=== PATIENT | male | born 1965 | race Hispanic/Latino ===

== ENCOUNTER 2025-02-09 07:56 | Emergency (ER) | payer SELFPAY ==
[~2025-02-09] VITALS: Ht 177.8 cm; Wt 90.7 kg
--- NOTE | 2025-02-09 08:13 | EKG ---
[facility] Test Date: 2025-02-09 Test Time: 07:51:47 Pat Name: PARTHA PÉREZ Department: ED Room: Gender: Stone [employer] R[employer]: [id number] : 1965 Requested By: PRIETO MCINTYRE Order Number: [id number] Reading MD: Natalee Kearns Measurements Intervals Mentcle Rate: 92 P: 23 NV: 164 QRS: -9 QRSD: 120 T: 9 QT: 396 QTc: 489 Interpretive Statements Normal sinus rhythm Nonspecific intraventricular conduction delay Nonspecific T wave abnormality No previous ECG available for comparison Electronically Signed On 02-09-2025 15:06:48 CDT by Natalee Kearns Please click the below link to view image of tracing.
[2025-02-09 08:20] LABS: BASOPHILS # (AUTO) 0.05 K/uL (0.00-0.20); BASOPHILS % (AUTO) 0.3 % (0.0-5.0); EOSINOPHILS # (AUTO) 0.28 K/uL (0.00-0.70); EOSINOPHILS % (AUTO) 1.9 % (0.0-8.0); HEMATOCRIT 41.5 % (42-54); IMMATURE GRANULOCYTE ABSOLUTE 0.05 K/uL (0-1); LYMPHOCYTES # (AUTO) 2.4 K/uL (1.0-4.8); LYMPHOCYTES % (AUTO) 16.3 % (21.0-51.0); MEAN CORPUSCULAR HEMOGLOBIN 29.4 pg (27.0-33.0); MEAN CORPUSCULAR HGB CONC 34.9 g/dL (32.0-36.0); MONOCYTES # (AUTO) 0.7 K/uL (0.1-1.0); NEUTROPHILS # (AUTO) 11.1 K/uL (1.8-7.7); NEUTROPHILS % (AUTO) 76.2 % (40.0-77.0); PLATELET COUNT (AUTO) 333 K/uL (130-400); RED BLOOD CELL COUNT(AUTO) 4.94 MIL/uL (4.50-6.20); RED CELL DISTRIBUTION WIDTH 13.3 % (11.0-15.5); WHITE BLOOD COUNT (AUTO) 14.5 K/uL (4.8-10.8)
[2025-02-09 08:34] LABS: CREATININE 0.9 mg/dL (0.5-1.3); POTASSIUM 4.4 mmol/L (3.5-5.1)
[2025-02-09 08:52] LABS: B-TYPE NATRIURETIC PEPTIDE 9 pg/mL (0-100)
--- NOTE | 2025-02-09 09:59 | HMCIMG ---
CHEST 1VW HISTORY: Chest pain COMPARISON: None FINDINGS: A frontal projection of the chest was obtained. Mild bilateral pulmonary infiltrates are seen may be related to mild pulmonary vascular congestion with possible superimposed pneumonitis. The heart is borderline enlarged. Degenerative changes are seen. Aortic calcifications are seen. IMPRESSION: 1. Bilateral pulmonary infiltrates are seen suggestive of pulmonary vascular congestion with possible superimposed pneumonitis.
[2025-02-09] MEDS ORDERED: NIFE-39 PO (10:11)
--- NOTE | 2025-02-09 10:12 | ERN ---
General Chief Complaint: Chest Pain Stated Complaint: CHEST PAIN Time Seen by MD: 08:03 History of Present Illness Initial Comments 59-year-old male presents for chest pain. Patient was very recently released from incarceration. He was walking from the bus and he felt chest pain. Center of the chest chest pain that has brief. He felt very anxious at the time. No dyspnea. He called EMS and was found to have stable vital signs that are normal EKG. On arrival here he reports that his symptoms have improved. He reports t hat he thinks he is likely suffering from anxiety/panic attack, but he wants to make sure that his heart is okay. It does have a significant history of anxiety and high blood pressure. Allergies: Coded Allergies: No Known Drug Allergies (Unverified Allergy, Unknown, 02/09/25) Past Medical History Past Medical History: Anxiety, Depression, High Cholesterol Past Surgical History: None ROS Dictation CONSTITUTIONAL: No chills, no fever, no weakness, no diaphoresis, no malaise. HEAD/FACE: No signs of trauma. EENT: No eye pain, no blurred vision, no tearing, no double vision, no ear pain, no ear discharge, no nose pain, no nasal congestion, no throat pain, no throat swelling, no mouth pain. RESPIRATORY: No cough, no orthopnea, no SOB, no stridor, no wheezing. CARDIOVASCULAR: Chest pain GASTROINTESTINAL/ABDOMINAL: No abdominal pain, no constipation, no diarrhea, no nausea, no vomiting. GENITOURINARY: No abnormal discharge, no dysuria, no frequent urination, no hematuria. No complaints of pain in the genitals. MUSCULOSKELETAL: No back pain, no gout, no joint pain, no joint swelling, no muscle pain, no muscle stiffness, no neck pain. INTEGUMENTARY: No change in color, no change in hair/nails, no dryness, no lesion, no lumps, no rash. NEUROLOGICAL/PSYCH: Anxiety HEMATOLOGIC/LYMPHATIC: Not anemic, no history of blood clots, no apparent bleeding, no bruising, glands not swollen. All Systems Negative, Except as Noted. Physical Exam Physical Exam Dictation VITAL SIGNS: Reviewed. GENERAL APPEARANCE: Alert, oriented x3, no acute distress, nontoxic HEAD AND FACE: Non-traumatic. EYES: PERRL, pink conjunctivas, eyelid no trauma, anterior chamber clear. EARS: Pinnas intact and no signs of trauma or erythema. Ear canals clear and no discharge. TMs no erythema. NOSE: No discharge, no bleeding. OROPHARYNX: Mouth normal, teeth no caries, tongue pink. Pharynx clear, no erythema. Tonsils no exudates, no abscesses noted. Mucous membrane moist. NECK: Supple, non-tender, no thyromegaly, no masses, no JVD, no bruits. BREAST: Deferred. CHEST: No tenderness, no crepitus, no paradoxical movement, no retractions. LUNGS: Clear, well-ventilated, symmetric, no rales, no wheezing, no rhonchi, no stridor, good breath sounds bilaterally. HEART: Regular rate, regular rhythm, no murmur, no gallops. VASCULAR: No peripheral edema. ABDOMEN: Soft, positive bowel sounds, nondistended, no guarding, nontender, no rebound, no masses no hepatomegaly, no splenomegaly, no Gonsalves's sign, no hernias. RECTAL: Deferred. GENITAL: Deferred. NEUROLOGICAL: Normal speech, gross motor function intact, gross sensory function intact. MUSCULOSKELETAL: Neck nontender, full range of motion, back nontender, full range of motion. EXTREMITIES: Nontender, full range of motion. SKIN: Color pink, dry, no turgor, no rash, no lacerations, no abrasions, no contusions. LYMPHATICS: Deferred. Results Laboratory and Microbiology Lab and Micro Result Laboratory Tests Test 02/09/25 08:06 02/09/25 09:23 White Blood Count 14.5 K/uL (4.8-10.8) H Red Blood Count 4.94 MIL/uL (4.50-6.20) Hemoglobin 14.5 g/dL (14.0-18.0) Hematocrit 41.5 % (42-54) L Mean Corpuscular Volume 84.0 fL (79-99) Mean Corpuscular Hemoglobin 29.4 pg (27.0-33.0) Mean Corpuscular Hemoglobin Concent 34.9 g/dL (32.0-36.0) Red Cell Distribution Width 13.3 % (11.0-15.5) Platelet Count 333 K/uL (130-400) Mean Platelet Volume 10.3 fL (7.5-10.5) Immature Granulocyte % (Auto) 0.3 % (0-1) Neutrophils (%) (Auto) 76.2 % (40.0-77.0) Lymphocytes (%) (Auto) 16.3 % (21.0-51.0) L Monocytes (%) (Auto) 5.0 % (3.0-13.0) Eosinophils (%) (Auto) 1.9 % (0.0-8.0) Basophils (%) (Auto) 0.3 % (0.0-5.0) Neutrophils # (Auto) 11.1 K/uL (1.8-7.7) H Lymphocytes # (Auto) 2.4 K/uL (1.0-4.8) Monocytes # (Auto) 0.7 K/uL (0.1-1.0) Eosinophils # (Auto) 0.28 K/uL (0.00-0.70) Basophils # (Auto) 0.05 K/uL (0.00-0.20) Absolute Immature Granulocyte (auto 0.05 K/uL (0-1) Nucleated Red Blood Cells 0.0 % (0.0-0.19) Sodium Level 138 mmol/L (136-145) Potassium Level 4.4 mmol/L (3.5-5.1) Chloride Level 103 mmol/L (101-111) Carbon Dioxide Level 26 mmol/L (21-32) Blood Urea Nitrogen 24 mg/dL (7-18) H Creatinine 0.9 mg/dL (0.5-1.3) Glomerular Filtration Rate Calc 99 mL/min (>90) Random Glucose 205 mg/dL (70-105) H Total Calcium 9.3 mg/dL (8.5-10.1) Troponin I High Sensitivity 10 ng/L (4-75) 11 ng/L (4-75) B-Type Natriuretic Peptide 9 pg/mL (0-100) MDM CC: Chest pain Historian: Patient Comorbidities: Hypertension, anxiety Limitations by social determinants of health: Patient just released from incarceration. He does have insurance but does not have a primary provider. I did factor this into my decision making. I gave him a prolonged prescription for his hypertension medication based on this. Differential diagnosis: ACS versus anxiety reaction Vital signs are stable, remained stable in the ER EKG shows a sinus rhythm rate of 92 with a normal axis good R-wave progression. LVH criteria. No STEMI. Independently interpreted by me. Labs show leukocytosis 14.5 K no shift or bands. No anemia. Chemistry shows s table electrolytes elevated BUN to creatinine ratio consistent with dehydration. Mild elevated blood glucose 205, troponin x2 stable. BNP stable. Patient has a p.o. tolerant. No treatment in the ED Patient was observed for 2 hours. Two normal troponins. Heart score of 3. Low suspicion for significant cardiac disease this time. Symptoms have clearly improved. Plan will be to discharge to outpatient follow up. We will give a referral to Cardiology. We will also give a refill of his nifedipine prescription. Patient is agreeable to this plan. ED Course Orders Procedure Category Date Status Time Cbc With Differential LAB 02/09/25 Complete 08:02 Basic Metabolic Panel LAB 02/09/25 Complete 08:02 Troponin I High LAB 02/09/25 Complete Sensitivity 08:02 Chest 1vw RAD 02/09/25 Resulted 08:02 12 Lead Ekg Tracing- EKG 02/09/25 Complete Technical 08:02 B-Type Natriuretic LAB 02/09/25 Complete Peptide 08:02 Troponin I High LAB 02/09/25 Complete Sensitivity 09:09 Vital Signs Date Time Temp Pulse Resp B/P (MAP) Pulse Ox O2 Delivery O2 Flow Rate FiO2 02/09/25 09:38 97.9 95 18 120/68 99 Room Air* 0 21 02/09/25 08:30 97.9 92 18 135/64 98 Room Air* 0 21 02/09/25 07:57 98.1 96 17 146/58 96 Room Air 0 DX & DISP Disposition: Discharge Departure Impression: Primary Impression: Chest pain, non-cardiac Additional Impressions: Anxiety reaction, Hypertension Condition: Stable Scripts Nifedipine (Nifedipine ER) 60 Mg Tab.er.24 1 TAB PO DAILY for 60 Days, #60 TAB 0 Refills Prov: PRIETO MCINTYRE DO 02/09/25 Additional Instructions: You do not appear to be having a heart attack here today. You EKGs normal. Your chest x-ray is normal. Your blood work including cardiac markers (CBC, metabolic panel, BNP, troponin x2) is unremarkable. I have given you a prescription for your high blood pressure medication. Please follow up with the geological technical officer. I have given you a referral. Please return to the emergency department as needed. Referrals: SELF,REFERRAL (PCP) PRABHJOT LOPEZ MD, RYAN E DO Feb 09, 2025 10:12
[2025-02-09 11:07] VITALS: BP 129/78; PULSE 98; RESP 18; TEMP 97.8; O2SAT 96
== END 2025-02-09 11:29 | disposition home or self-care (01) ==
LOC: EDH 07:56
DX: R07.89 Other chest pain (principal); F41.1 Generalized anxiety disorder; I10 Essential (primary) hypertension; E78.00 Pure hypercholesterolemia, unspecified; F32.A Depression, unspecified
CPT/HCPCS: 36415; 71045; 80048; 83880; 84484; 85025; 93005; 99285